=== PATIENT | female | born 1980 ===

== ENCOUNTER 2018-12-01 03:32 | Emergency (ER) | payer MEDICAID ==
[2018-12-01 03:45] VITALS: BMI 25.6
[2018-12-01 03:47] VITALS: TEMP 98; O2SAT 100
--- NOTE | 2018-12-01 04:29 | ED PDOC ---
Arrival/HPI - General Chief Complaint: Female Genitourinary Time Seen by Provider: 12/01/18 03:48 Historian: Patient - History of Present Illness Narrative History of Present Illness (Text): 12/01/18 04:13 Suellen Dunne is a 38 year old female who presents to the emergency department requesting STD testing. Patient states her partner recently tested positive for syphilis and was treated. Patient now requesting STD testing. Patient notes she has been experiencing vague left flank discomfort and some watery vaginal discharge. The patient denies any fever, chills,abdominal pain, nausea, vomiting, diarrhea, urinary symptoms, neck pain, headache, dizziness, or any other complaints. Time/Duration: > week Symptom Onset: Gradual Symptom Course: Unchanged Activities at Onset: Light Context: Home Past Medical History - Provider Review Nursing Documentation Reviewed: Yes - Reproductive Currently : No - Pulmonary Hx Asthma: Yes - Psychiatric Hx Substance Use: No Family/Social History - Physician Review Nursing Documentation Reviewed: Yes Family/Social History: Unknown Family HX Smoking Status: Never Smoked Hx Alcohol Use: Yes Frequency of alcohol use: Socially Hx Substance Use: No Allergies/Home Meds Allergies/Adverse Reactions: Allergies shellfish derived Allergy (Verified 12/01/18 03:46) SWELLING Review of Systems - Physician Review All systems were reviewed & negative as marked: Yes - Review of Systems Constitutional: Normal. absent: Fevers Eyes: Normal ENT: Normal Respiratory: Normal. absent: SOB, Cough Cardiovascular: Normal. absent: Chest Pain Gastrointestinal: Normal. absent: Abdominal Pain, Diarrhea, Nausea, Vomiting Genitourinary Female: Vaginal Discharge Musculoskeletal: Back Pain Skin: Normal. absent: Rash Neurological: Normal. absent: Headache, Dizziness Endocrine: Normal Hemo/Lymphatic: Normal Psychiatric: Normal Physical Exam Vital Signs Reviewed: Yes Vital Signs Temp Pulse Resp BP Pulse Ox 12/01/18 03:46 98 F 89 16 111/76 100 Temperature: Afebrile Blood Pressure: Normal Pulse: Regular Respiratory Rate: Normal Appearance: Positive for: Well-Appearing, Non-Toxic, Comfortable Pain Distress: None Mental Status: Positive for: Alert and Oriented X 3 - Systems Exam Head: Present: Atraumatic, Normocephalic Pupils: Present: PERRL Extroacular Muscles: Present: EOMI Conjunctiva: Present: Normal Mouth: Present: Moist Mucous Membranes Neck: Present: Normal Range of Motion Respiratory/Chest: Present: Clear to Auscultation, Good Air Exchange. No: Respiratory Distress, Accessory Muscle Use Cardiovascular: Present: Regular Rate and Rhythm, Normal S1, S2. No: Murmurs Abdomen: No: Tenderness, Distention, Peritoneal Signs Genitourinary/Pelvic Exam: Present: Normal External Genitalia, Vaginal Discharge (Scanty whitish discharge), Cervical os Closed, Other (ELIZABET Mcclure present as provider network manager). No: Vaginal Bleeding, Adenexal Tenderness, Cervical Motion Tendernes Back: Present: Normal Inspection. No: CVA Tenderness, Midline Tenderness, Paraspinal Tenderness Upper Extremity: Present: Normal Inspection. No: Cyanosis, Edema Lower Extremity: Present: Normal Inspection. No: Edema Neurological: Present: GCS=15, CN II-XII Intact, Speech Normal Skin: Present: Warm, Dry, Normal Color. No: Rashes Psychiatric: Present: Alert, Oriented x 3, Normal Insight, Normal Concentration Medical Decision Making ED Course and Treatment: 12/01/18 04:13 Impression: 38 year old female requesting STD testing, partner recently tested positive for syphilis. Pt complaining of left ankle pain and left foot. Plan: -- Urinalysis -- GC/Chlamydia RNA, FTA-ABS, Rapid HIV -- Reassess and disposition Progress Notes: - Scribe Statement The provider has reviewed the documentation as recorded by the Ana M Conde Provider Scribe Attestation: All medical record entries made by the Scribe were at my direction and personally dictated by me. I have reviewed the chart and agree that the record accurately reflects my personal performance of the history, physical exam, medical decision making, and the department course for this patient. I have also personally directed, reviewed, and agree with the discharge instructions and disposition. Disposition/Present on Arrival - Present on Arrival Any Indicators Present on Arrival: No History of DVT/PE: No History of Uncontrolled Diabetes: No Urinary Catheter: No History of Decub. Ulcer: No History Surgical Site Infection Following: None - Disposition Have Diagnosis and Disposition been Completed?: Yes Diagnosis: Exposure to sexually transmitted disease (STD) Disposition: HOME/ ROUTINE Disposition Time: 05:34 Patient Plan: Discharge Patient Problems: Current Active Problems Problem Status Onset Exposure to sexually transmitted disease (STD) Acute Condition: GOOD Additional Instructions: Follow up at [facility] this week Referrals: [facility] [Outside] - Follow up with primary Betty Brock MD [Medical Doctor] - Follow up with primary [facility] [Outside] - Follow up with primary Forms: [employer] ([place]ian)
[2018-12-01 05:22] LABS: URINE BILIRUBIN NEGATIVE (NEGATIVE); URINE BLOOD NEGATIVE (NEGATIVE); URINE GLUCOSE (UA) NEGATIVE (NEGATIVE); URINE LEUKOCYTE ESTERASE NEGATIVE Leu/uL (NEGATIVE); URINE PROTEIN NEGATIVE mg/dL (<30 mg/dL); URINE UROBILINOGEN 0.2 E.U./dL (<1 E.U./dL)
[2018-12-01] MEDS ORDERED: cefTRIAXone (Rocephin) 250 mg Inj IM STA (05:22)
[2018-12-01 05:28] LABS: URINE APPEARANCE CLEAR (CLEAR); URINE COLOR YELLOW (YELLOW)
[2018-12-01 05:29] LABS: HCG,QUALITATIVE URINE NEGATIVE (NEGATIVE)
[2018-12-01 07:11] VITALS: BP 112/80; PULSE 80; RESP 18
== END 2018-12-01 05:50 | disposition home or self-care (01) ==
LOC: ED 03:32
DX: Z20.2 Contact with and (suspected) exposure to infections with a predominantly sexual mode of transmission (principal)
CPT/HCPCS: 81003; 81025; 84703; 86780; 87390; 87491; 87591; 96372; 99283; J0696